=== PATIENT | male | born 1985 | race Caucasian/White ===

== ENCOUNTER 2017-08-30 05:27 | Day surgery (SDC) | payer BC ==
[2017-08-28 16:10] LABS: BASOPHILS # (AUTO) 0.1 X10'3 (0-0.2); BASOPHILS % (AUTO) 0.7 % (0-1); EOSINOPHILS # (AUTO) 0.5 X10'3 (0-0.9); EOSINOPHILS % (AUTO) 6.1 % (0-6); LYMPHOCYTES # (AUTO) 1.6 X10'3 (1.1-4.8); LYMPHOCYTES % (AUTO) 21.7 % (21-51); MEAN CORPUSCULAR HEMOGLOBIN 30.2 PG (27.0-31.0); MEAN CORPUSCULAR HGB CONC 35.1 % (33.0-36.5); MONOCYTES # (AUTO) 0.4 X10'3 (0-0.9); MONOCYTES % (AUTO) 5.6 % (2-12); NEUTROPHILS # (AUTO) 4.9 X10'3 (1.8-7.7); NEUTROPHILS % (AUTO) 65.9 % (42-75); PRE OP HEMATOCRIT 25.5 % (42.0-52.0); PRE OP PLATELET COUNT 260 X10'3 (140-440); RED BLOOD COUNT 2.96 X10'6 (4.70-6.10); RED CELL DISTRIBUTION WIDTH 13.7 % (11.5-14.5)
[2017-08-28 16:14] LABS: PRE OP HEMOGLOBIN 8.9 g/dL (14.0-17.9)
[2017-08-28 16:21] LABS: COLOR,URINE YELLOW (Yellow); GLUCOSE, URINE NEGATIVE (Neg); KETONES,URINE NEGATIVE (Neg); LEUKOCYTE ESTERASE ,URINE MODERATE (Neg); NITRITES, URINE NEGATIVE (Neg); OCCULT BLOOD,URINE SMALL (Neg); PH,URINE 5.5 (4.8-8.0); PROTEIN,URINE NEGATIVE (Neg); UROBILINOGEN,URINE 0.2 E.U/dL (0.2-1.0)
[2017-08-28 16:23] LABS: ALBUMIN 4.7 G/DL (3.4-5.0); ALBUMIN/GLOBULIN RATIO 1.3 (1.1-1.5); ALKALINE PHOSPHATASE 206 IU/L (46-116); BLOOD UREA NITROGEN 155 MG/DL (7-18); CALCIUM 10.7 MG/DL (8.5-10.1); CHLORIDE 89 MMOL/L (99-107); CREATININE 11.91 MG/DL (0.60-1.10); PRE OP ALT 42 U/L (30-65); PRE OP ANION GAP 23 (8-16); PRE OP AST 13 U/L (10-37); PRE OP BILIRUB, TOTAL 0.4 MG/DL (0.0-1.0); PRE OP GLUCOSE 101 MG/DL (70-104); PRE OP POTASSIUM 4.2 MMOL/L (3.4-5.1); PRE OP SODIUM 131 MMOL/L (135-145); TOTAL CARBON DIOXIDE 19.3 MMOL/L (24-32); TOTAL PROTEIN 8.4 G/DL (6.4-8.2); eGFR 5 ML/MIN
[2017-08-28 16:39] LABS: CLARITY,URINE SLIGHTLY CLOUDY (Clear); UA COLLECTION TYPE VOIDED
[2017-08-28 16:45] LABS: BACTERIA,URINE FEW /HPF (Neg)
[2017-08-28 16:46] LABS: SQUAMOUS EPITHELIAL CELL,UR FEW /LPF (FEW); WBC CLUMPS,URINE MODERATE /HPF (NEGATIVE)
[~2017-08-30] VITALS: Ht 177.8 cm; Wt 61.6 kg
[2017-08-30] VITALS (8 sets, daily range): BP systolic 110–137; BP diastolic 71–86
[~2017-08-30 05:27] MED LIST: SEVE800T8 PO; ringers solution, lacted 1,000 ML IV SCH
[2017-08-30] MEDS ORDERED: cefazolin/dext.iso 2gm/50ml 50 ML IV ONE (05:30)
[2017-08-30] MEDS ORDERED: famotidine 20mg tablet PO ONE (05:30)
[2017-08-30] MEDS ORDERED: LIDOcaine 1% (10mg/ml) 2ml vial ONE (05:58)
[2017-08-30] MEDS ORDERED: ceFAZolin 1000mg inj ONE (06:45)
[2017-08-30] MEDS ORDERED: bacitracin 15gm ointment TP ONE (06:45)
[2017-08-30] MEDS ORDERED: heparin sodium, porcine/PF 100unit/ml 5ML syringe ONE (06:45)
[2017-08-30] MEDS ORDERED: BUPIVAcaine/PF 2.5 mg/ml (0.25%) 30ml vial ONE (06:46)
[2017-08-30] MEDS ORDERED: desflurane 240ml liquid inh. IH ONE (07:32)
[2017-08-30] MEDS ORDERED: fentaNYL/PF 50MCG/1 ML 2ML syringe ONE ×2 (07:37→08:51)
[2017-08-30] MEDS ORDERED: midazolam 2 mg/2 ml injection ONE (07:37)
[2017-08-30] MEDS ORDERED: LIDOcaine 2% 5ml jelly ONE (07:38)
[2017-08-30] MEDS ORDERED: rocuronium 10mg/ml inj IV ONE (08:05)
[2017-08-30] MEDS ORDERED: LIDOcaine 2% (20mg/ml) 5ml vial ONE (08:05)
[2017-08-30] MEDS ORDERED: ePHEDrine 50MG/ML INJ. ONE (08:05)
[2017-08-30] MEDS ORDERED: propofol inj 20 ML IV ONE (08:05)
[2017-08-30] MEDS ORDERED: ondansetron/PF 4mg/2ml inj ONE (08:06)
[2017-08-30] MEDS ORDERED: dexamethasone sod phosphate 4mg/ml inj. ONE (08:06)
[2017-08-30] MEDS ORDERED: glycopyrrolate 0.2mg/ml inj ONE (08:31)
[2017-08-30] MEDS ORDERED: neostigmine methylsulfate 1 MG/ML 10ml vial ONE (08:31)
[2017-08-30] MEDS ORDERED: HYDROmorphone 1 mg/ml syringe ONE (08:32)
[2017-08-30] MEDS ORDERED: ondansetron/PF 4mg/2ml inj IV PRN (08:40)
[2017-08-30] MEDS ORDERED: morphine 2 MG/ML inj. syringe IV PRN (08:40)
[2017-08-30] MEDS ORDERED: proCHLORperazine 10 MG/2 ml inj IV PRN (08:40)
[2017-08-30] MEDS ORDERED: ringers solution, lacted 1,000 ML IV SCH (08:40)
[2017-08-30] MEDS ORDERED: morphine 4 MG/ML inj SYRINge IV PRN (08:40)
[2017-08-30] MEDS ORDERED: fentaNYL/PF 50MCG/1 ML 2ML syringe IV PRN (08:40)
[2017-08-30] MEDS: fentaNYL/PF 50MCG/1 ML 2ML syringe IV PRN ×2 (08:54→09:01)
== END 2017-08-30 09:40 | disposition home or self-care (01) ==
LOC: PAS 05:27
PROVIDERS: ATTEND Surgery
DX: I12.0 Hypertensive chronic kidney disease with stage 5 chronic kidney disease or end stage renal disease (principal); N18.6 End stage renal disease; Z98.890 Other specified postprocedural states; Z79.899 Other long term (current) drug therapy
CPT/HCPCS: 36415; 49324; 80053; 81001; 85025; 87088; C1750; C1758; J0690; J1100; J1170; J1642; J2001; J2250; J2405; J2704; J2710; J3010; J3490; J7030; J7120; A7000

== ENCOUNTER 2017-10-11 08:36 | Day surgery (SDC) | payer BC ==
[2017-10-11] VITALS (7 sets, daily range): BP systolic 109–134; BP diastolic 78–84
[~2017-10-11] VITALS: Ht 177.8 cm; Wt 63.5 kg
[~2017-10-11 08:36] MED LIST changes: +CINA30TA PO; +ceFOXitin 2 GM ADDvantage bag 100 ML IV ONE; +famotidine 20mg tablet PO ONE; +normal saline 1000ml 1,000 ML IV SCH; -ringers solution, lacted 1,000 ML IV SCH
[2017-10-11 09:30] LABS: BASOPHILS # (AUTO) 0.1 X10'3 (0-0.2); BASOPHILS % (AUTO) 1.1 % (0-1); EOSINOPHILS % (AUTO) 12.9 % (0-6); MEAN CORPUSCULAR HEMOGLOBIN 30.9 PG (27.0-31.0); MEAN CORPUSCULAR HGB CONC 34.1 % (33.0-36.5); MEAN CORPUSCULAR VOLUME 90.4 FL (78-98); MEAN PLATELET VOLUME 7.4 FL (7.4-10.4); MONOCYTES # (AUTO) 0.5 X10'3 (0-0.9); MONOCYTES % (AUTO) 5.8 % (2-12); NEUTROPHILS # (AUTO) 4.4 X10'3 (1.8-7.7); NEUTROPHILS % (AUTO) 55.2 % (42-75); PRE OP HEMATOCRIT 29.2 % (42.0-52.0); PRE OP PLATELET COUNT 344 X10'3 (140-440); RED BLOOD COUNT 3.23 X10'6 (4.70-6.10); RED CELL DISTRIBUTION WIDTH 16.3 % (11.5-14.5)
[2017-10-11 09:40] LABS: INR 0.9 INR; PRE OP PARTIAL THROMB. TIME 23 SECONDS (22-35); PROTHROMBIN TIME 9.8 SECONDS (9.0-12.0)
[2017-10-11 09:46] LABS: ALBUMIN 4.1 G/DL (3.4-5.0); ALBUMIN/GLOBULIN RATIO 1.1 (1.1-1.5); ALKALINE PHOSPHATASE 261 IU/L (46-116); BLOOD UREA NITROGEN 72 MG/DL (7-18); BUN/CREATININE RATIO 7.4 (5.4-32.0); CALCIUM 10.5 MG/DL (8.5-10.1); CHLORIDE 98 MMOL/L (99-107); CREATININE 9.78 MG/DL (0.60-1.10); PRE OP ANION GAP 17 (8-16); PRE OP AST 42 U/L (10-37); PRE OP BILIRUB, TOTAL 0.4 MG/DL (0.0-1.0); PRE OP GLUCOSE 100 MG/DL (70-104); PRE OP POTASSIUM 3.4 MMOL/L (3.4-5.1); PRE OP SODIUM 140 MMOL/L (135-145); TOTAL CARBON DIOXIDE 25.3 MMOL/L (24-32); TOTAL PROTEIN 7.9 G/DL (6.4-8.2); eGFR 6 ML/MIN
[2017-10-11 09:48] LABS: PRE OP ALT 112 U/L (30-65)
[2017-10-11] MEDS ORDERED: ceFAZolin 1000mg inj ONE (11:44)
[2017-10-11] MEDS ORDERED: mupirocin 2% ointment 22GM ONE (11:44)
[2017-10-11] MEDS ORDERED: BUPIVAcaine/PF 2.5 mg/ml (0.25%) 30ml vial ONE (11:44)
[2017-10-11] MEDS ORDERED: heparin sodium, porcine/PF 100unit/ml 5ML syringe ONE (11:44)
[2017-10-11] MEDS ORDERED: midazolam 2 mg/2 ml injection ONE (11:48)
[2017-10-11] MEDS ORDERED: propofol inj 20 ML IV ONE (11:55)
[2017-10-11] MEDS ORDERED: rocuronium 10mg/ml inj IV ONE ×2 (11:55→11:58)
[2017-10-11] MEDS ORDERED: fentaNYL /PF 50mcg/ml 5ml ampule ONE (11:55)
[2017-10-11] MEDS ORDERED: LIDOcaine 1%/PF (10mg/ml) 5ml vial ONE (11:57)
[2017-10-11] MEDS ORDERED: sevoflurane 250ml liquid IH ONE (11:59)
[2017-10-11] MEDS ORDERED: dexamethasone sod phosphate 4mg/ml inj. ONE (12:12)
[2017-10-11] MEDS ORDERED: ringers solution, lacted 1,000 ML IV SCH (12:18)
[2017-10-11] MEDS ORDERED: meperidine/PF 50mg/ml syringe IV PRN (12:20)
[2017-10-11] MEDS ORDERED: acetaminophen 1,000mg/100ml IV 100 ML IV PRN (12:20)
[2017-10-11] MEDS ORDERED: HYDROmorphone inj. 0.5 MG/0.5 ML DISP.SYRIN IV PRN ×2 (12:20)
[2017-10-11] MEDS ORDERED: ondansetron/PF 4mg/2ml inj IV PRN (12:20)
[2017-10-11] MEDS ORDERED: fentaNYL/PF 50MCG/1 ML 2ML syringe IV PRN ×2 (12:20)
[2017-10-11] MEDS ORDERED: proCHLORperazine 10 MG/2 ml inj IV PRN (12:20)
[2017-10-11] MEDS ORDERED: glycopyrrolate 0.2mg/ml inj ONE ×3 (12:31→12:32)
[2017-10-11] MEDS ORDERED: neostigmine methylsulfate 1 MG/ML 10ml vial ONE (12:32)
== END 2017-10-11 13:35 | disposition home or self-care (01) ==
LOC: PAS 08:36
PROVIDERS: ATTEND Surgery
DX: T82.848A Pain due to vascular prosthetic devices, implants and grafts, initial encounter (principal); I12.0 Hypertensive chronic kidney disease with stage 5 chronic kidney disease or end stage renal disease; N18.6 End stage renal disease; N28.1 Cyst of kidney, acquired; Z98.890 Other specified postprocedural states; Z79.899 Other long term (current) drug therapy; Y83.8 Other surgical procedures as the cause of abnormal reaction of the patient, or of later complication, without mention of misadventure at the time of the procedure; Y92.89 Other specified places as the place of occurrence of the external cause
CPT/HCPCS: 36415; 49325; 80053; 85025; 85610; 85730; 93005; C1758; J0694; J1100; J1642; J2001; J2250; J2704; J2710; J3010; J3490; J7030; A7000; J0690; J7070; J7120

== ENCOUNTER 2019-06-19 10:42 | Emergency (ER) | payer BC ==
[~2019-06-19] VITALS: Ht 177.8 cm; Wt 65.9 kg
[~2019-06-19 10:42] MED LIST changes: -ceFOXitin 2 GM ADDvantage bag 100 ML IV ONE; -famotidine 20mg tablet PO ONE; -normal saline 1000ml 1,000 ML IV SCH
--- NOTE | 2019-06-19 11:02 | NUR ---
PT moved from triage to ED bed 6.
[2019-06-19 11:31] VITALS: BP 146/83
== END 2019-06-19 11:41 | disposition home or self-care (01) ==
LOC: ER 10:42
DX: M25.461 Effusion, right knee (principal); N18.9 Chronic kidney disease, unspecified; Z79.899 Other long term (current) drug therapy; W01.0XXA Fall on same level from slipping, tripping and stumbling without subsequent striking against object, initial encounter; Y93.89 Activity, other specified; Y92.89 Other specified places as the place of occurrence of the external cause; Y99.8 Other external cause status
CPT/HCPCS: 29505; 73564; 99284

== ENCOUNTER 2019-07-15 14:45 | Observation (INO) | payer BC ==
[~2019-07-15] VITALS: Ht 177.8 cm; Wt 62.8 kg
[2019-07-15] VITALS (7 sets, daily range): BP systolic 80–121; BP diastolic 36–88
[2019-07-15 15:35] LABS: BASOPHILS # (AUTO) 0.1 X10'3 (0-0.2); BASOPHILS % (AUTO) 1.3 % (0-1); EOSINOPHILS # (AUTO) 1.1 X10'3 (0-0.9); EOSINOPHILS % (AUTO) 13.6 % (0-6); HEMATOCRIT 34.2 % (42.0-52.0); LYMPHOCYTES # (AUTO) 2.1 X10'3 (1.1-4.8); LYMPHOCYTES % (AUTO) 25.7 % (21-51); MEAN CORPUSCULAR HEMOGLOBIN 30.9 PG (27.0-31.0); MEAN CORPUSCULAR VOLUME 88.3 FL (78-98); MONOCYTES # (AUTO) 0.4 X10'3 (0-0.9); MONOCYTES % (AUTO) 4.3 % (2-12); NEUTROPHILS # (AUTO) 4.6 X10'3 (1.8-7.7); NEUTROPHILS % (AUTO) 55.1 % (42-75); PLATELET COUNT 302 X10'3 (140-440); RED BLOOD COUNT 3.87 X10'6 (4.70-6.10); RED CELL DISTRIBUTION WIDTH 13.2 % (11.5-14.5); WHITE BLOOD COUNT 8.3 X10'3 (4.5-11.0)
[2019-07-15 15:46] LABS: PARTIAL THROMBOPLASTIN TIME 25 SECONDS (22-32)
[2019-07-15 15:55] LABS: ALANINE AMINOTRANSFERASE 54 U/L (12-78); ALBUMIN 3.8 G/DL (3.4-5.0); ALBUMIN/GLOBULIN RATIO 1.1 (1.1-1.5); ALKALINE PHOSPHATASE 574 IU/L (46-116); ANION GAP 13 (8-16); ASPARTATE AMINO TRANSFERASE 16 U/L (10-37); BILIRUBIN,TOTAL 0.6 MG/DL (0.1-1.0); BLOOD UREA NITROGEN 49 MG/DL (7-18); BUN/CREATININE RATIO 5.6 (5.4-32.0); CALCIUM 9.1 MG/DL (8.5-10.1); CHLORIDE 96 MMOL/L (99-107); CREATININE 8.76 MG/DL (0.60-1.10); GLUCOSE 85 MG/DL (70-104); POTASSIUM 3.1 MMOL/L (3.5-5.1); SODIUM 136 MMOL/L (135-145); TOTAL CARBON DIOXIDE 26.8 MMOL/L (24-32); TOTAL PROTEIN 7.4 G/DL (6.4-8.2); eGFR 7 ML/MIN
[2019-07-15] MEDS ORDERED: amox tr/potassium clavulanate 875/125mg TAB PO ONE (16:45)
[2019-07-15] MEDS ORDERED: AMOX-422 PO (16:47)
[2019-07-15] MEDS ORDERED: BUPIVAcaine/PF 2.5mg/ml (0.25%) 10ml vial ONE (17:09)
[2019-07-15] MEDS ORDERED: bacitracin 15gm ointment TP ONE (17:09)
[2019-07-15] MEDS ORDERED: normal saline 1000ml 1,000 ML IV SCH (17:44)
[2019-07-15] MEDS ORDERED: fentaNYL/PF 50MCG/1 ML 2ML syringe IV PRN ×2 (17:45)
[2019-07-15] MEDS ORDERED: proCHLORperazine 10 MG/2 ml inj IV PRN (17:45)
[2019-07-15] MEDS ORDERED: morphine 4 MG/ML inj SYRINge IV PRN ×2 (17:45)
[2019-07-15] MEDS ORDERED: ondansetron/PF 4mg/2ml inj IV PRN (17:45)
[2019-07-15] MEDS ORDERED: fentaNYL/PF 50MCG/1 ML 2ML syringe ONE (17:48)
[2019-07-15] MEDS ORDERED: midazolam 2 mg/2 ml injection ONE (17:48)
[2019-07-15] MEDS ORDERED: ceftazidime 1000mg in D5W 50ml 50 ML IV ONE (17:50)
[2019-07-15] MEDS ORDERED: VANCOMYCIN 1gm/H2O 200ml PB 200 ML IV ONE (17:50)
[2019-07-15] MEDS ORDERED: LIDOcaine 1% 30ml preserv. free vial ONE (17:52)
[2019-07-15] MEDS ORDERED: propofol inj 20 ML IV ONE ×3 (18:08)
[2019-07-15] MEDS ORDERED: dexamethasone sod phosphate 4mg/ml inj. ONE (18:21)
[2019-07-15] MEDS ORDERED: ondansetron/PF 4mg/2ml inj ONE (18:21)
--- NOTE | 2019-07-15 18:28 | NUR ---
Received from OR via surgical bed, accompanied by Anesthesiologist Scott and report given by Anesthesiolgist. BP low patient placed in trendelenberg, no orders to bolus because pt on dialysis. Will monitor closely. 18G left forearm IVF LR at 100cc/hr. Pt very sleepy not responsive to questions, all other VS WNL, mask at 10L and sats greater than 98%. Abdomen has 4x4 with tape present. No bleeding or drainage.
[2019-07-15] MEDS ORDERED: diphenhydrAMINE 50 mg/ml inj IM ONE (19:00)
[2019-07-15] MEDS ORDERED: diphenhydrAMINE 50 mg/ml inj IV ONE (19:05)
--- NOTE | 2019-07-15 19:28 | NUR ---
Pt discharged to vehicle without incident. Dressing his minimal spots of drainage shadowing through but not increasing, patient has been inastructed on how to change dressing and knows from prior care how to do it. He states understanding of all other DC instructions including how to use the packing, to call MD tomorrow for follow up instructions regarding new catheter being placed. IV DCd, all clothing back on patient and personal items returned to him. [place] script given to patient.
[2019-07-15] MEDS ORDERED: ampicillin/sulbac 3gm/NS 100ml 100 ML IV SCH (20:00)
== END 2019-07-15 19:28 | disposition home or self-care (01) ==
LOC: ER 14:46 → SUR 3N 18:00
PROVIDERS: ADMIT Surgery; ATTEND Surgery
DX: T85.71XA Infection and inflammatory reaction due to peritoneal dialysis catheter, initial encounter (principal); Q61.3 Polycystic kidney, unspecified; N18.6 End stage renal disease; Z99.2 Dependence on renal dialysis; Y83.8 Other surgical procedures as the cause of abnormal reaction of the patient, or of later complication, without mention of misadventure at the time of the procedure
CPT/HCPCS: 36415; 49422; 80053; 84145; 85025; 85610; 85730; 87070; 87075; 87077; 87186; 96374; 99284; A6266; G0378; J0713; J1100; J1200; J2001; J2250; J2405; J2704; J3010; J3370; J3490; J7040; A6449; A7000; J0295

== ENCOUNTER 2019-07-16 09:25 | Outpatient (CLI) | payer BC ==
[~2019-07-16 09:25] MED LIST changes: +AMOX-422 PO; +VANCOMYCIN 1gm/H2O 200ml PB 200 ML IV ONE; +ceftazidime 1000mg in D5W 50ml 50 ML IV ONE
== END 2019-07-16 09:56 | disposition home or self-care (01) ==
LOC: ORTHO 09:25
PROVIDERS: ATTEND Nurse Practitioner
DX: M79.89 Other specified soft tissue disorders (principal); M25.461 Effusion, right knee
CPT/HCPCS: 73564; G0463; J0713; J3370

== ENCOUNTER 2019-07-18 07:00 | Day surgery (SDC) | payer BC ==
[~2019-07-18] VITALS: Ht 177.8 cm; Wt 62.3 kg
[~2019-07-18 07:00] MED LIST changes: -VANCOMYCIN 1gm/H2O 200ml PB 200 ML IV ONE; -ceftazidime 1000mg in D5W 50ml 50 ML IV ONE
[2019-07-18] MEDS ORDERED: normal saline 1000ml 1,000 ML IV PRN (07:40)
[2019-07-18 07:59] VITALS: BP 121/72
[2019-07-18] MEDS ORDERED: LIDOcaine 1%/PF 5ML 10 MG/ML VIAL ONE (08:31)
[2019-07-18] MEDS ORDERED: heparin 1,000unit/ml 10ml vial 10 ML ONE (08:31)
[2019-07-18] MEDS ORDERED: midazolam 2 mg/2 ml injection ONE (08:32)
[2019-07-18] MEDS ORDERED: fentaNYL/PF 50MCG/1 ML 2ML syringe ONE ×2 (08:32→08:55)
[2019-07-18 09:23] VITALS: BP 134/73
[2019-07-18 09:30] VITALS: BP 115/81
[2019-07-18 09:45] VITALS: BP 114/74
[2019-07-18 10:00] VITALS: BP 114/52
[2019-07-18 10:15] VITALS: BP 109/71
== END 2019-07-18 10:35 | disposition home or self-care (01) ==
LOC: SSTAY O 07:00
PROVIDERS: ATTEND Radiology Diagnostic Radiology
DX: N18.6 End stage renal disease (principal); Z79.899 Other long term (current) drug therapy; Z88.1 Allergy status to other antibiotic agents
CPT/HCPCS: 36558; 76937; 77001; 99152; 99153; C1750; C1769; C1894; J1644; J2250; J3010; J7030; A9270